=== PATIENT | female | born 1945 | race Two or more races ===

== ENCOUNTER 2024-12-27 16:39 | Emergency (ER) | payer OTHER, MEDICAID ==
[~2024-12-27] VITALS: Ht 175.3 cm; Wt 86.4 kg
[2024-12-27] MEDS ORDERED: ACYC-129 PO (20:26)
[2024-12-27] MEDS ORDERED: AMLO2.5T2 PO (20:26)
[2024-12-27] MEDS ORDERED: TIZA-189 PO (20:26)
[2024-12-27] MEDS ORDERED: GABA-530 PO (20:26)
[2024-12-27] MEDS: acetaminophen 325mg tablet PO ONE (20:29)
[2024-12-27] MEDS ORDERED: LIDO700A32 TD (21:30)
[2024-12-27] MEDS ORDERED: IBUP-1984 PO (21:30)
[2024-12-27] MEDS: LIDOcaine 5% patch TP STA (21:40)
[2024-12-27 21:44] VITALS: BP 164/84; PULSE 84; RESP 16; TEMP 97; O2SAT 97
== END 2024-12-27 21:48 | disposition home or self-care (01) ==
LOC: ER 16:41
DX: M25.552 Pain in left hip (principal); M25.551 Pain in right hip; Z79.1 Long term (current) use of non-steroidal anti-inflammatories (NSAID); Z79.899 Other long term (current) drug therapy
CPT/HCPCS: 73521; 99283

== ENCOUNTER 2025-02-16 10:25 | Emergency (ER) | payer OTHER, MEDICAID ==
[~2025-02-16] VITALS: Ht 149.9 cm; Wt 61.6 kg
[~2025-02-16 10:25] MED LIST: ACYC-129 PO; AMLO2.5T2 PO; GABA-530 PO; LIDO700A32 TD; TIZA-189 PO
[2025-02-16 11:45] VITALS: TEMP 97.3
[2025-02-16 14:22] VITALS: BP 168/65; PULSE 60; O2SAT 98
[2025-02-16 15:14] VITALS: RESP 16
[2025-02-16] MEDS: ketorolac trometh 15mg/ml vial 15 MG/ML ML IM ONE (15:14)
== END 2025-02-16 15:15 | disposition home or self-care (01) ==
LOC: ER 10:25
DX: K40.90 Unilateral inguinal hernia, without obstruction or gangrene, not specified as recurrent (principal); Z79.899 Other long term (current) drug therapy
CPT/HCPCS: 96372; 99283; J1885

== ENCOUNTER 2025-03-31 15:41 | Emergency (ER) | payer MEDICARE, MEDICAID ==
[~2025-03-31] VITALS: Ht 149.9 cm; Wt 76.4 kg
[2025-03-31 16:24] LABS: BASOPHILS % (AUTO) 0.6 % (0-1); EOSINOPHILS # (AUTO) 0.4 X10'3 (0-0.9); EOSINOPHILS % (AUTO) 6.9 % (0-6); HEMATOCRIT 35.1 % (35.0-45.0); HEMOGLOBIN 11.9 g/dl (12.0-16.0); LYMPHOCYTES # (AUTO) 1.9 X10'3 (1.1-4.8); LYMPHOCYTES % (AUTO) 31.7 % (21-51); MEAN CORPUSCULAR HEMOGLOBIN 27.7 PG (27.0-31.0); MEAN CORPUSCULAR HGB CONC 33.8 g/dL (33.0-36.5); MEAN CORPUSCULAR VOLUME 82.1 FL (78-98); MEAN PLATELET VOLUME 6.5 FL (7.4-10.4); MONOCYTES # (AUTO) 0.5 X10'3 (0-0.9); MONOCYTES % (AUTO) 8.9 % (2-12); NEUTROPHILS % (AUTO) 51.9 % (42-75); PLATELET COUNT 324 X10'3 (140-440); RED BLOOD COUNT 4.28 X10'6 (4.20-5.60); RED CELL DISTRIBUTION WIDTH 17.8 % (11.5-14.5); WHITE BLOOD COUNT 5.9 X10'3 (4.5-11.0)
[2025-03-31 16:37] LABS: ALANINE AMINOTRANSFERASE 17 U/L (12-78); ALBUMIN 3.5 G/DL (3.4-5.0); ALBUMIN/GLOBULIN RATIO 0.8 (1.1-1.5); ALKALINE PHOSPHATASE 118 IU/L (46-116); ANION GAP 7 (8-16); ASPARTATE AMINO TRANSFERASE 17 U/L (10-37); BILIRUBIN,TOTAL 0.4 MG/DL (0.1-1.0); BLOOD UREA NITROGEN 15 MG/DL (7-18); BUN/CREATININE RATIO 14.3 (10.0-20.0); CALCIUM 9.3 MG/DL (8.5-10.1); CHLORIDE 108 MMOL/L (99-107); CREATININE 1.05 MG/DL (0.40-0.90); GLUCOSE 100 MG/DL (70-104); LIPASE 61 U/L (16-77); POTASSIUM 4.1 MMOL/L (3.5-5.1); SODIUM 142 MMOL/L (135-145); eCRCL 30 ML/MIN; eGFR 51 ML/MIN
[2025-03-31] MEDS: HYDROmorphone inj. 0.5 MG/0.5 ML DISP.SYRIN IV ONE (20:58)
[2025-03-31] MEDS ORDERED: iohexol 300mg/ml 100ml inj. ONE (21:59)
[2025-03-31 22:54] LABS: BILIRUBIN,URINE NEGATIVE (Neg); CLARITY,URINE CLEAR (Clear); COLOR,URINE YELLOW (Yellow); GLUCOSE, URINE NEGATIVE (Neg); KETONES,URINE NEGATIVE (Neg); LEUKOCYTE ESTERASE ,URINE NEGATIVE (Neg); NITRITES, URINE NEGATIVE (Neg); OCCULT BLOOD,URINE SMALL (Neg); PROTEIN,URINE NEGATIVE (Neg); UA COLLECTION TYPE CLN CATCH MIDSTREAM; UROBILINOGEN,URINE 0.2 E.U/dL (0.2-1.0)
[2025-03-31 23:07] LABS: RBC,URINE NONE SEEN /HPF (0-2); WBC,URINE 0-4 /HPF (0-4)
[2025-03-31 23:08] LABS: BACTERIA,URINE NONE SEEN /HPF (Neg); SQUAMOUS EPITHELIAL CELL,UR FEW /LPF (FEW)
--- NOTE | 2025-04-01 00:28 | RADIOLOGY REPORT ---
Clinical History LLQ abdominal pain Comparison None Technique: Contiguous axial CT images of the abdomen and pelvis before and after intravenous contrast administration. Coronal and sagittal reformation was performed. All CT scans at this medical facility are performed using dose modulation techniques as appropriate t o a performed exam including the following: Automated exposure control was utilized; adjustment of th e mA and/or kV according to patient size; and use of iterative reconstruction technique. All CT studies are reported to the Dose Index Registry of the [employer]. Contrast: 150 OMNI 300 Radiation Dose: CTDI (mGy): 29.07; DLP (mGy-cm): 1706.85 GABE VELA, [id number] Findings: Several cysts are in both kidneys. The liver, spleen, both adrenal glands, both kidneys, and pancrea s are otherwise normal. No hydronephrosis or ureteral stone is present. The gallbladder is contracted and not well evaluated. Multiple diverticula are in the descending and sigmoid colon. The stomach, small bowel, and colon sh ow otherwise normal caliber and wall thickness. The appendix is normal. A 23 x 15 mm peripherally enhancing lesion is in the left inguinal subcutaneous tissue. No free air, free fluid, or lymphadenopathy is in the abdomen or pelvis. The abdominal aorta shows normal course and diameter. Both lung bases are clear. The urinary bladder is intact. The uterus shows normal size and shape. No acute fracture or bony destructive lesion is in the imaged portion of the skeleton. Impression: 1. Left inguinal peripherally enhancing 23 mm lesion may represent an abscess. Please correlate cli nically. 2. Colonic diverticulosis. This report was electronically signed by Alvaro Vital MD on 04/01/2025 12:24:24 AM.
--- NOTE | 2025-04-01 01:13 | Physician Documentation ---
History of Present Illness Chief Complaint: Abdominal Pain Stated Complaint: ABD PAIN Time Seen by MD: 20:10 Primary Medical Doctor: none Mode of Arrival: Ambulatory HPI 79 year old female reports several days of L inguinal pain, radiating to her back. Denies fever, N/V/D, urinary symptoms. She has a history of a hernia to her L groin in the past. She has been using the toilet normally with a bowel movement yesterday. Medication Reconciliation Allergies: Coded Allergies: No Known Allergies (Unverified , 12/27/24) Scheduled Acyclovir* (Zovirax*), 1 TAB PO QID, (Reported) Amlodipine* (Norvasc*), 10 MG PO DAILY, (Reported) Ciprofloxacin HCl (Ciprofloxacin HCl), 1 TAB PO BID Gabapentin (Gabapentin), 1 CAP PO BID, (Reported) Lidocaine (Lidoderm), 1 PATCH TD DAILY Metronidazole* (Flagyl*), 1 TAB PO Q12H Scheduled PRN Tizanidine Hcl (Zanaflex), 1 TAB PO BID PRN for pain, (Reported) Review of Systems All Other Systems at this time: Reviewed and Negative Physical Exam Vital Signs: RN Vital Signs have been reviewed: Yes, Temperature: 98.0, Source: Temporal, Heart Rate: 60, Respiratory Rate: 16, BP: 168/82, Pulse Oximetry: 98, Weight: 76.360 Oxygen Flow Rate: 0 Physical Exam HEENT: PERRL, moist oral mucosa, EOMI Pulmonary: No respiratory distress Cardiac: RRR, no murmur, rub or gallop GI: nondistended, soft, +TTP to L inguinal region without palpable hernia, nor overlying erythema, induration, fluctuance MSK: no deformity Skin: w/d/i, no rash Neuro: alert, nonfocal Psych: normal affect Progress Results/Orders Results/Orders Orders - NANCY ARSHAD MD Ct Abdomen Pelvis (03/31/25 20:24) Completed Orders - NANCY ARSHAD MD Ct Abdomen Pelvis (03/31/25 20:24) Hydromorphone 0.5 Mg/0.5 Ml/Pf (Dilaudid (03/31/25 20:30) Iohexol 300mg/Ml 100ml Inj. (Omnipaque-3 (03/31/25 21:59) Vital Signs 503/31/25 03/31/25 03/31/25 15:45 20:22 20:25 23:42 Temp 98.2 Pulse 69 60 74 Resp 17 16 16 16 B/P (MAP) 192/73 193/91 (125) 186/98 (127) Pulse Ox 94 98 95 O2 Flow Rate 0 0 04/01/25 01:08 Temp 98.0 Pulse 60 Resp 16 B/P (MAP) 168/82 (110) Pulse Ox 98 O2 Flow Rate 0 Laboratory Tests Test 03/31/25 22:47 Urine Specimen Description Cln catch midstream Urine Color Yellow Urine Clarity Clear Urine pH 6.0 Urine Specific Osprey 1.010 Urine Protein Negative Urine Glucose (UA) Negative Urine Ketones Negative Urine Occult Blood Small Urine Nitrite Negative Urine Bilirubin Negative Urine Urobilinogen 0.2 Urine Leukocyte Esterase Negative Urine RBC None seen Urine WBC 0-4 Urine Squamous Epithelial Cells Few Urine Bacteria None seen Urine Culture Indicated Not ind Volume Urine Centrifuged 10 ml Urine Comment Medical Decision Making Findings 79 year old female with L inguinal pain as above. Workup was largely benign other than CT scan which demonstrated a 2cm fluid-filled circular subQ/inguinal rim-enhancing structure with some surrounding fluid and fat stranding. This could represent an abscess or cyst, but does not appear contiguous with the bowel or consistent with a hernia. Discussed this with the patient and elected to provide antibiotics and advise that she follow up with her primary care physician for further workup. Return precautions were discussed. Differential Dx:Considerations: Include: Appendicitis, Bowel obstruction, Constipation, Gastritis/PUD, Gastroenteritis, Hernia, Ischemic bowel, Ovarian cyst/torsion, Pancreatitis, Urinary obstruction, Urinary tract infection, Urolithiasis Departure Disposition: 01 HOME / SELF CARE / HOMELESS Impression: Primary Impression: Cyst Condition: Stable Discharge Instructions: Abdominal Pain (Nonspecific) Referrals: NO PRIMARY CARE PROVIDER (PCP) Prescriptions Metronidazole* (Flagyl*) 500 Mg Tablet 1 TAB PO Q12H for 10 Days, #20 TAB Prov: NANCY ARSHAD MD 04/01/25 Ciprofloxacin HCl (Ciprofloxacin HCl) 500 Mg Tab 1 TAB PO BID, #20 TAB Prov: NANCY ARSHAD MD 04/01/25 Education Educated: Patient Educated regarding: diagnosis, treatment, prognosis, need for follow up Signature Scribe Signature: . Attestation: . NANCY ARSHAD MD April 01, 2025 01:13
[2025-04-01] MEDS ORDERED: METR-159 PO (01:31)
[2025-04-01] MEDS ORDERED: CIPR-202 PO (01:31)
[2025-04-01 01:53] VITALS: BP 183/86; PULSE 62; RESP 16; TEMP 98.5; O2SAT 96
== END 2025-04-01 01:57 | disposition home or self-care (01) ==
LOC: ER 15:43
DX: R10.30 Lower abdominal pain, unspecified (principal)
CPT/HCPCS: 36415; 74178; 80053; 81001; 83690; 85025; 99285; Q9967; 74177

== ENCOUNTER 2025-04-09 12:25 | Emergency (ER) | payer MEDICARE, MEDICAID ==
[~2025-04-09] VITALS: Ht 144.8 cm; Wt 63.6 kg
[~2025-04-09 12:25] MED LIST changes: +CIPR-202 PO; +METR-159 PO
[2025-04-09 12:38] VITALS: BP 158/75; PULSE 69; TEMP 98.1; O2SAT 96
--- NOTE | 2025-04-09 14:30 | RADIOLOGY REPORT ---
CLINICAL INDICATION: left hip pain TECHNIQUE: DI HIP left 2 VIEWS Comparison: None FINDINGS/IMPRESSION: There is no evidence of acute fracture or dislocation. Moderate degenerative changes of the left hip with flattening of the femoral head. Intact appearing right arthroplasty on frontal view. Soft tissues are unremarkable.
[2025-04-09] MEDS ORDERED: HYDR-3965 PO (14:51)
--- NOTE | 2025-04-09 14:53 | Physician Documentation ---
History of Present Illness ~ Chief Complaint: Buttock Pain Stated Complaint: "HERNIA" Time Seen by MD: 13:20 Primary Medical Doctor: none HPI 79-year-old female reports ER with chief complaint of left hip pain radiating to her buttock. Patient states he has been having symptoms for past three weeks. Denies bowel urinary incontinence. Denies saddle anesthesias. Denies numbness tingling loss of sensation. Currently not taking medications therapy has been in symptoms. No other complaints at this time Medication Reconciliation Allergies: Coded Allergies: No Known Allergies (Unverified , 04/09/25) Scheduled Acyclovir* (Zovirax*), 1 TAB PO QID, (Reported) Amlodipine* (Norvasc*), 10 MG PO DAILY, (Reported) Ciprofloxacin HCl (Ciprofloxacin HCl), 1 TAB PO BID Gabapentin (Gabapentin), 1 CAP PO BID, (Reported) Lidocaine (Lidoderm), 1 PATCH TD DAILY Metronidazole* (Flagyl*), 1 TAB PO Q12H Prednisone* (Prednisone*), 1 TAB PO Q12H Scheduled PRN Hydrocodone Bit/Acetaminophen 5/325 MG (Lutz 5/325 MG), 1 TAB PO Q12H PRN PRN for pain Tizanidine Hcl (Zanaflex), 1 TAB PO BID PRN for pain, (Reported) Physical Exam Physical Exam Vital Signs: Temperature: 98.1, Source: Oral, Heart Rate: 69, Respiratory Rate: 15, BP: 158/75, Pulse Oximetry: 96, Weight: 63.650 Physical Exam General: Well developed, well nourished, no distress. HEENT: Atraumatic, normal conjunctiva, moist mucous membranes. Neck: Full range of motion, supple. Respiratory: Lungs clear, no respiratory distress. Chest: No accessory muscle use, nontender. Cardiovascular: Regular rate and rhythm. Gastrointestinal: Soft, nontender, nondistended. Bowel sounds present. Extremities: Left hip exam: Negative for permanents gross deformities. Negative for overlying erythema, ecchymosis signs of infection. Positive tenderness to the left groin with pain with forward flexion of the hip as well as internal and external rotation of the hip. Flexion-extension of the hip from 0-130 and internal and external rotation from 0-70. EHL intact. Neurovascular intact distally Back: No midline tenderness, no CVA tenderness. Neurologic: Oriented x4. Distal gross motor and sensory intact all four extremities. Moves all 4 extremities spontaneously. Psychiatric: Normal mood and affect. Skin: Normal color, warm and dry. No edema, no ecchymosis Progress Results/Orders Results/Orders Orders - TONE RIVERA Hip Unilateral 2 Views (04/09/25 14:19) Completed Orders - TONE RIVERA Hip Unilateral 2 Views (04/09/25 14:19) Hydrocodone/Apap 5/325mg Tab (Lutz 5/32 (04/09/25 14:55) Medications Received in ER Medications (Trade) Dose Ordered Sig/Myra Route PRN Reason Start Time Stop Time Status Last Admin Dose Admin (Lutz 5/325mg tablet) 1 tab ONCE ONCE PO 04/09/25 14:55 04/09/25 14:56 DC 04/09/25 15:04 1 TAB Vital Signs 04/09/25 04/09/25 12:38 15:04 Temp 98.1 Pulse 69 Resp 15 18 B/P (MAP) 158/75 Pulse Ox 96 Medical Decision Making Additional info obtained from: old records Findings After detailed discussion and joint medical decision-making, diagnostic and imaging results were discussed with the patient. At this time patient symptoms consistent with a bursitis versus is arthritis. Patient does have slight arthritic changes to the hip. Patient was given medication for pain he will be discharged with instructions to follow up with primary care. ER precautions were given. Patient is stable upon discharge. All patient questions answered to satisfaction Differential Dx:Considerations: Include: Other (Arthritis, fracture, contusion, bursitis) Departure Disposition: HOME / SELF CARE / HOMELESS Impression: Primary Impression: Pain, joint, hip, left Additional Impressions: Back pain Osteoarthritis of hip Condition: Stable Discharge Instructions: Sciatica Referrals: NO PRIMARY CARE PROVIDER (PCP) Prescriptions Prednisone* (Prednisone*) 20 Mg Tablet 1 TAB PO Q12H for 5 Days, #10 TAB Prov: TONE RIVERA 04/09/25 Hydrocodone Bit/Acetaminophen 5/325 MG (Lutz 5/325 MG) 5 Mg/325 Mg Tablet 1 TAB PO Q12H PRN PRN for pain for 5 Days, #10 TAB Prov: TONE RIVERA 04/09/25 Education Educated: Patient Educated regarding: diagnosis, treatment Signature Scribe Signature: none used Attestation: Scribed for Tone Rivera by Tone HOGUE . 04/09/25 14:53 TONE RIVERA April 09, 2025 14:53
[2025-04-09 15:04] VITALS: RESP 18
[2025-04-09] MEDS: HYDROcodone/acetaminophen 5mg/325mg tablet PO ONE (15:04)
[2025-04-09] MEDS ORDERED: PRED20TA PO (15:13)
== END 2025-04-09 15:15 | disposition home or self-care (01) ==
LOC: ER 12:26
DX: M16.12 Unilateral primary osteoarthritis, left hip (principal); M54.9 Dorsalgia, unspecified
CPT/HCPCS: 73502; 99283

== ENCOUNTER 2025-09-15 14:28 | Outpatient (CLI) | payer MEDICARE, MEDICAID ==
[~2025-09-15 14:28] MED LIST changes: -CIPR-202 PO; +LIDO-52 TD; -LIDO700A32 TD; -METR-159 PO
--- NOTE | 2025-09-15 17:24 | RADIOLOGY REPORT ---
PROCEDURE: MR MRI LUMBAR SPINE Indication: MYALGIA, OTHER SITE, LOW BACK PAIN, PAIN IN L LEG COMPARISON: None TECHNIQUE: Multiplanar multisequence images of the the lumbar spine are obtained. FINDINGS: For the purpose of this examination, there are 5 lumbar vertebral body types counting from the lumbosacral junction. Chronic L5 compression deformity with 50% loss height. Chronic L2 compression deformity with 50% loss height. Chronic L3, L4 compression deformities with 20% loss height. Chronic T11 compression deformity with 20% loss height. No abnormal marrow edema. Moderate multilevel disc space narrowing and desiccation. There is mild lumbar dextrocurvature. Conus terminates at the level of the L1 level. Bilateral renal cysts. Colonic diverticular disease. T12-L1: 3 mm disc protrusion. Rbii-ku-fcjkzgbi facet and flavum hypertrophy. No spinal canal stenosis. Moderate bilateral neural foraminal stenosis. L1-2: 3 mm disc protrusion. Mild facet and flavum hypertrophy. No spinal canal stenosis. Moderate bilateral neural foraminal stenosis. L2-3: 2 mm disc protrusion. Ukui-im-oqsvecvr facet and flavum hypertrophy. No spinal canal stenosis. Zler-nl-pbcenplt bilateral neural foraminal stenosis. L3-4: Small disc osteophyte complex. Qftk-yp-fxcvijmt facet and flavum hypertrophy. No spinal canal stenosis. Moderate bilateral neural foraminal stenosis. L4-5: Small disc protrusion. Legt-rf-onikonlk facet and flavum hypertrophy. No spinal canal stenosis. Bstk-lc-pvoqpsko bilateral neural foraminal stenosis. L5-S1: Small disc protrusion. Jhro-ci-ogbyeodv facet and flavum hypertrophy. No spinal canal stenosis. Moderate bilateral neural foraminal stenosis. IMPRESSION: Moderate lumbar degenerative disc disease. Multiple lumbar chronic appearing compression deformities as described above. No high-grade spinal canal stenosis. Multilevel sbkg-mx-vmlnvoxa neural foraminal stenosis as described.
--- NOTE | 2025-09-15 21:36 | RADIOLOGY REPORT ---
EXAM: MR MRI LOWER EXTREMITY LEFT INDICATION: LEFT LEG PAIN TECHNIQUE: Multiplanar, multisequence imaging of the left lower extremity /femur without contrast COMPARISON: MR MRI PELVIS on DOS: 09/15/25 FINDINGS: BONES: Significant appearance of flattening of the superior aspect of the left femoral head with prominent underlying osteitis with serpiginous low T2 signal extending along the subchondral bone plate (series 7, image 20). Imaging findings may be compatible with sequelae of avascular necrosis, stage IV with end-stage osteoarthrosis. Right hip arthroplasty. MUSCLES: Normal signal intensity and morphology. TENDONS: Intact. LIGAMENTS: Intact. JOINT SPACES: Small left hip joint effusion. NEUROVASCULAR: Normal. OTHER: None. IMPRESSION: 1. Significant appearance of flattening of the superior aspect of the left femoral head with prominent underlying osteitis with serpiginous low T2 signal extending along the subchondral bone plate. 2. Imaging findings may be compatible with sequelae of avascular necrosis, stage IV with 3. Small left hip joint effusion.
--- NOTE | 2025-09-15 21:39 | RADIOLOGY REPORT ---
EXAM: MR MRI PELVIS INDICATION: MYALGIA, OTHER SITE, LOW BACK PAIN, PAIN IN L LEG TECHNIQUE: Multiplanar, multisequence imaging of the pelvis without contrast COMPARISON: CT CT ABDOMEN PELVIS W/ IV CONTRAST on DOS: 03/31/25 FINDINGS: [BONES]: Evidence of avascular necrosis of the left femoral head with estimated up to 50 percent involvement of the articular surface with subsequent flattening of the superior femoral head. Subsequent end-stage osteoarthrosis of the left hip. Chronic superior endplate height loss with 50 percent central height loss of the L5 without evidence of retropulsion. [MUSCLES]: Trace asymmetric muscle edema of the origin of the gluteus minimus. [TENDONS]: Hamstring tendon origins at the ischial tuberosities are normal. [JOINT SPACES]: Small left hip joint effusion [NEUROVASCULAR]: Visualized sciatic nerves are normal without evidence of a subjacent mass lesion or abnormal intrinsic T2 hyperintensity. The visualized sacral nerve roots are normal with normal appearing surround fat planes without an adjacent mass lesion. [OTHER]: There is no trochanteric or iliopsoas bursal collection. Intraperitoneal cavity is unremarkable. Minimal descending and sigmoid colonic diverticulosis. Small fat containing left inguinal hernia. Degenerative change of bilateral sacroiliac joints. IMPRESSION: 1. Avascular necrosis of the left femoral head with subsequent 2. No abnormal intrinsic T2 hyperintensity of the visualized sciatic nerves.
== END 2025-09-15 23:59 | disposition home or self-care (01) ==
LOC: MRI02 14:28
PROVIDERS: ATTEND Physician Assistant
DX: M47.817 Spondylosis without myelopathy or radiculopathy, lumbosacral region (principal); M51.27 Other intervertebral disc displacement, lumbosacral region; M87.852 Other osteonecrosis, left femur; M25.452 Effusion, left hip; M46.1 Sacroiliitis, not elsewhere classified; M48.07 Spinal stenosis, lumbosacral region; M47.814 Spondylosis without myelopathy or radiculopathy, thoracic region; K40.90 Unilateral inguinal hernia, without obstruction or gangrene, not specified as recurrent; M51.24 Other intervertebral disc displacement, thoracic region; M48.04 Spinal stenosis, thoracic region; M43.8X5 Other specified deforming dorsopathies, thoracolumbar region; M43.8X6 Other specified deforming dorsopathies, lumbar region; M79.18 Myalgia, other site; M79.605 Pain in left leg; Z96.641 Presence of right artificial hip joint
CPT/HCPCS: 72148; 72195; 73718

== ENCOUNTER 2025-10-22 12:04 | Emergency (ER) | payer MEDICARE, MEDICAID ==
[~2025-10-22] VITALS: Ht 157.5 cm; Wt 71.8 kg
[2025-10-22 12:08] VITALS: TEMP 98
--- NOTE | 2025-10-22 14:21 | Physician Documentation ---
History of Present Illness ~ Chief Complaint: Hip pain Stated Complaint: R HIP PAIN Time Seen by MD: 14:05 Primary Medical Doctor: none HPI 80 yr old female who presents to the emergency department reporting that she has had steadily worsening right hip pain over the last several weeks. No trauma. Hx hip replacement approx 4 yrs ago. She reports that for the last four days, s he has been unable to ambulate more than a few steps due to the pain. She has seen her primary care provider for this. She has received steroid injections in the hip, and has a referral pending to a specialist. She provides further history through the parts interpreter that she was seen at [facility] yesterday, and did have an MRI. This result will be obtained. The patient denies any chills or fever, nausea or vomiting, chest pain or shortness of breath. She has been taking ibuprofen for the pain. It has proven ineffective. Medication Reconciliation Allergies: Coded Allergies: No Known Allergies (Unverified , 04/09/25) Scheduled Acyclovir* (Zovirax*), 1 TAB PO QID, (Reported) Amlodipine* (Norvasc*), 10 MG PO DAILY, (Reported) Gabapentin (Gabapentin), 1 CAP PO BID Gabapentin (Neurontin), 1 CAP PO qhs Lidocaine (Lidoderm), 1 PATCH TD DAILY Scheduled PRN Hydrocodone Bit/Acetaminophen (Hydrocodon-Acetaminophen 5-325), 1 TAB PO TID PRN PRN for pain Tizanidine Hcl (Zanaflex), 1 TAB PO BID PRN for pain, (Reported) Review of Systems ROS As stated above in the HPI, otherwise all systems are reviewed and negative. Physical Exam Vital Signs: Temperature: 98.0, Source: Temporal, Heart Rate: 70, Respiratory Rate: 16, BP: 168/74, Pulse Oximetry: 99, Weight: 71.820 Oxygen Flow Rate: 0 Physical Exam General: Alert, no apparent distress. HEENT: PERRL, EOMI, no injection, moist mucous membranes. Neck: Full range of motion. Respiratory: Lungs clear, no respiratory distress. Chest: No accessory muscle use. Cardiovascular: Regular rate and rhythm, no murmurs. Gastrointestinal: Soft, nontender, nondistended. Bowels sounds present. Extremities: Presents in w/c. Able to ambulate a couple steps but is limited due to pain. TTP right hip without hot red joint or skin abnormalities noted on exam. Neurologic: Oriented x4. Psychiatric: Normal mood and affect. Skin: Normal color, warm and dry. No edema, no ecchymosis. Progress Results/Orders Results/Orders Orders - MARLYN WEST NP Hip Unilateral 2-3 Views (10/22/25 14:15) Gait Test (10/22/25 ) Completed Orders - MARLYN WEST NP Hip Unilateral 2-3 Views (10/22/25 14:15) Hydrocodone/Apap 5/325mg Tab ([place] 5/32 (10/22/25 14:55) Medications Received in ER Medications (Trade) Dose Ordered Sig/Myra Route PRN Reason Start Time Stop Time Status Last Admin Dose Admin ([place] 5/325mg tablet) 1 tab ONCE ONCE PO 10/22/25 14:55 10/22/25 14:56 DC 10/22/25 15:22 1 TAB Vital Signs 10/22/25 10/22/25 12:08 15:22 Temp 98.0 Pulse 70 Resp 16 16 B/P (MAP) 168/74 Pulse Ox 99 O2 Flow Rate 0 EKG/XRAY/CT/US/VASC/MRI Bone/Soft Tissue X-Ray (Spine) : Additional Comment [place] [id number] DIAGNOSTIC RADIOLOGY Patient: GABE VELA Medical Record: [id number] [facility] : 1945, Age: 80 Sex: Female Location: ER Patient Status: REG ER Service Date/Time: 10/22/251414 Ordering Physician: MARLYN WEST NP Exam: HIP UNILATERAL 2-3 VIEWS PROCEDURE: Right hip radiographs. INDICATION: pain TECHNIQUE: Frontal and lateral views of the right hip COMPARISON: DI HIP UNILATERAL 2 VIEWS on DOS: 04/09/25, DI HIP,BI,CMPLT(AP PELVIS) on DOS: 12/27/24 FINDINGS: There is a right hip replacement which appears to be intact. 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 There is no evidence of fracture or dislocation. The soft tissues are unremarkable. IMPRESSION: 1. No acute osseous abnormality. 2. Intact right hip replacement. Electronically Signed by:ELSY KAY MD Date & Time: 10/22/25 1443 Dictated by: ELSY KAY MD Dictation date and time: 10/22/25 1410 Primary Care Provider: NO PRIMARY CARE PROVIDER cc: MARLYN WEST INDUSTRIAL CLEANING TECHNICIAN ~ Medical Decision Making Additional information obtaine: family Findings Family member accompanies her. Electronic Industrial Controls Mechanic used to translate Azeri. Differential Dx:Considerations: Include: Avascular necrosis, Arthritis, Arthritis-Rheumatoid, Arthritis-Septic, Bursitis, Contusion, Dislocation, DJD, Fracture-femur, Fracture-hip, Fracture-open, Fracture-pelvis, Gout, Hernia, Asmf-Kjrpj-lknzlrr dz., Neurovascular injury, Slip capital femoral epip, Sprain, Transient synovitis Additional Comment MRI results of lumbar spine and hip reviewed from just within last few months. Patient given one hydrocodone in ER and will be sent with same for discharge. Should f/u with PCP and specialists as planned. Departure Time of Disposition: 15:46 Disposition: 01 HOME / SELF CARE / HOMELESS Impression: Primary Impression: Hip pain Qualified Codes: M25.551 - Pain in right hip Additional Impression: Arthritis Discharge Instructions: Hip Pain, Arthritis, Nonspecific Additional Instructions: ### Hip Pain Management Instructions Instrucciones para el Manejo del Dolor de Cadera / Hip Pain Management Instruc tions Lan Diagnstico / Your Diagnosis Usted tiene dolor santos de cadera relacionado con artritis. Aunque tuvo un reemplazo de cadera hace varios aos, ahora est experimentando dolor nuevo y santos que dificulta caminar. Se le latham realizado estudios de imagen (resonancia magntica) de la espalda baja y la cadera para evaluar la causa de lan dolor. You have severe hip pain related to arthritis. Although you had a hip replacement several years ago, you are now experiencing new, severe pain that makes it difficult to walk. You have had imaging studies (MRI) of your lower back and hip to evaluate the cause of your pain. Analisa Medicamentos / Your Medications Hidrocodona (Hydrocodone) - Medicamento Opioide para el Dolor a Corto Plazo / Short-Term Opioid Pain Medication Se le murillo recetado un curso corto de hidrocodona para ayudar a controlar lan dolor santos. Fatemeh es un medicamento opioide (narctico) que solo debe usarse por un perodo breve. You have been prescribed a short course of hydrocodone to help control your severe pain. This is an opioid (narcotic) medication that should only be used fo r a brief period. Riesgos Importantes de los Opioides en Adultos Mayores / Important Risks of Opioids in Older Adults: Los adultos mayores tienen mayor riesgo de efectos secundarios graves con los medicamentos opioides:[1][2][3] Older adults are at higher risk for serious side effects from opioid medications:[1][2][3] - Estreimiento (Constipation): Los opioides kendra siempre causan estreimiento. Debe comenzar un rgimen intestinal preventivo (genoveva un ablandador de heces o laxante suave) [place] pronto genoveva comience a pooja hidrocodona. Lissette mitchel agua y aumente la fibra en lan dieta si es posible.[2][3] - Depresin Respiratoria (Respiratory Depression): Los opioides pueden hacer que lan respiracin se vuelva peligrosamente lenta, especialmente cuando se combinan con otros medicamentos sedantes. [place] puede ser fatal. Los adultos mayores son ms susceptibles a fatemeh efecto.[2][3][4] - Somnolencia Excesiva y Confusin (Excessive Drowsiness and Confusion): Los opioides pueden causar somnolencia severa, confusin y delirio, especialmente en adultos mayores. [place] aumenta lan riesgo de cadas.[2][3] - Mareos y Cadas (Dizziness and Falls): Los opioides pueden causar mareos y problemas de equilibrio, lo que aumenta significativamente lan riesgo de caerse.[2] - Dependencia y Adiccin (Dependence and Addiction): Incluso el uso a corto plazo de opioides puede llevar al uso prolongado no deseado y al desarrollo de un trastorno por uso de opioides.[1] Instrucciones Importantes de Seguridad / Important Safety Instructions: - [place] la hidrocodona exactamente genoveva se le recet. No tome ms de la cantidad prescrita.[4] - NO conduzca ni opere maquinaria mientras tome hidrocodona, ya que puede afectar lan capacidad para hacerlo de manera chairez.[4] - NO lissette alcohol mientras tome hidrocodona, ya que esto aumenta enormemente el riesgo de depresin respiratoria y muerte.[4] - NO tome benzodiazepinas (genoveva diazepam, lorazepam, alprazolam) u otros sedantes con hidrocodona sin hablar eliel con lan mdico, ya que esta combinacin puede ser fatal.[4] - Guarde la hidrocodona en un lugar seguro, preferiblemente bajo llave, para evitar que otros (incluidos los nios) la tomen accidentalmente o intencionalmente.[4] - Deseche cualquier hidrocodona no utilizada de manera chairez cuando termine lan tratamiento.[4] - Si experimenta dificultad para respirar, confusin severa, somnolencia extrema o no puede despertarse, busque atencin mdica de emergencia de inmediato.[1] Gabapentina (Gabapentin) - Para Dolor Neuroptico / For Neuropathic Pain La gabapentina es un medicamento que puede ayudar con ciertos tipos de dolor, especialmente el dolor nervioso. Sin embargo, tambin puede causar sedacin (somnolencia) y mareos, especialmente en adultos mayores.[2][5] Gabapentin is a medication that can help with certain types of pain, especially nerve pain. However, it can also cause sedation (drowsiness) and dizziness, especially in older adults.[2][5] Lan Horario de Gabapentina / Your Gabapentin Schedule: - Gabapentina 100 mg por la maana (Gabapentin 100 mg in the morning) - Gabapentina 100 mg por la tarde (Gabapentin 100 mg in the afternoon) - Gabapentina 300 mg al acostarse (Gabapentin 300 mg at bedtime) IMPORTANTE / IMPORTANT: NO comience a pooja la dosis de gabapentina de 300 mg al acostarse hasta que haya terminado completamente lan hidrocodona. La combinacin de gabapentina y hidrocodona puede causar sedacin peligrosa y depresin respiratoria, que a veces resulta en la muerte.[6][7][8] DO NOT start taking the 300 mg bedtime dose of gabapentin until you have completely finished your hydrocodone. The combination of gabapentin and hydrocodone can cause dangerous sedation and respiratory depression, sometimes resulting in .[6][7][8] Puede comenzar las dosis de gabapentina de la maana y la tarde mientras enrico hidrocodona, saeid espere para agregar la dosis de la noche hasta que la hidrocodona se haya terminado. You may start the morning and afternoon gabapentin doses while taking hydrocodon e, but wait to add the nighttime dose until the hydrocodone is finished. Efectos Secundarios de la Gabapentina / Gabapentin Side Effects: - Somnolencia y mareos (Drowsiness and dizziness) - Mayor riesgo de cadas (Increased fall risk) - Confusin (Confusion) Si experimenta mareos severos o dificultad para caminar con la gabapentina, contacte a lan mdico de atencin primaria.[2][5] If you experience severe dizziness or difficulty walking with gabapentin, contact your primary care doctor.[2][5] Seguimiento Mdico Necesario / Required Medical Follow-Up Erika con lan Mdico de Atencin Primaria / Appointment with Your Primary Care Doctor: Debe programar aliya erika con lan mdico de atencin primaria dentro de 1-2 semanas para: You should schedule an appointment with your primary care doctor within 1-2 weeks to: - Revisar lan plan de tratamiento del dolor (Review your pain treatment plan) - Evaluar qu [place] becky estn funcionando analisa medic ### References 1. CDC Clinical Practice Guideline for Prescribing Opioids for Pain - [facility], 2021. Patricia Perrin, Shruthi KR, Dillan CM, Gregory GT, Lula R. MMWR. Recommendations and Reports : Morbidity and Mortality Weekly Report. Recommendations and Reports. 2021;71(3):1-95. doi:10.96506/mmwr.[email or web address]. 2. Best Practices Guidelines For Acute Pain Management In Trauma Patients. Lucas Nichols PharmD, Ish Stanford MD FACS FAAOS, et al. [employer] (2020). 3. Best Practices Guidelines Geriatric Trauma Management. Lorena Harris MD FACS, Marissa Astudillo MD, Charlene Menon MD FACS [facility], et al. [employer] (2022). 4. CDC Guideline for Pres[facility], 2016. Patricia Perrin, Chalo DARBY, Lula R. MOISES. 2016;315(15):1624-45. doi:10.1001/moises.2016.4224. 5. Pharmacotherapy for Spine-Related Pain in Older Adults. Ari COTA, Chichi MCCLURE. Drugs & Aging. 2021;39(7):523-550. doi:10.1007/[id number]-n. 6. GABAPENTIN. Food and Drug Administration. Updated date: 2025-02-25. 7. GABAPENTIN. Food and Drug Administration. Updated date: 2024-07-19. 8. Gabapentin. Food and Drug Administration. Updated date: 2025-03-28. Referrals: NO PRIMARY CARE PROVIDER (PCP) Prescriptions Gabapentin (Neurontin) 300 Mg Capsule 1 CAP PO qhs for 30 Days, #30 CAP 0 Refills Prov: MARLYN WEST NP 10/22/25 Hydrocodone Bit/Acetaminophen (Hydrocodon-Acetaminophen 5-325) 5 Mg-325 Mg Tablet 1 TAB PO TID PRN PRN for pain for 5 Days, #15 TAB Prov: MARLYN WEST NP 10/22/25 Lidocaine (Lidoderm) 5 % Adh..patch 1 PATCH TD DAILY, #10 PATCH Apply 1 patch daily for 12 hours then off for 12 hours May sub 15 grams 4 pct lidocaine cream if patches are cost peohibitive Prov: MARLYN WEST NP 10/22/25 Gabapentin (Gabapentin) 100 Mg Capsule 1 CAP PO BID for 30 Days, #60 CAP 0 Refills morning and afternoon Prov: MARLYN WEST NP 10/22/25 Education Educated: Patient, Family Educated regarding: diagnosis, treatment, prognosis, need for follow up Signature Scribe Signature: x Attestation: The note accurately reflects work and decisions made by me.Marlyn Colon NP 10/22/25 15:11 MARLYN WEST NP Oct 22, 2025 14:21
--- NOTE | 2025-10-22 14:45 | RADIOLOGY REPORT ---
PROCEDURE: Right hip radiographs. INDICATION: pain TECHNIQUE: Frontal and lateral views of the right hip COMPARISON: DI HIP UNILATERAL 2 VIEWS on DOS: 04/09/25, DI HIP,BI,CMPLT(AP PELVIS) on DOS: 12/27/24 FINDINGS: There is a right hip replacement which appears to be intact. 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 There is no evidence of fracture or dislocation. The soft tissues are unremarkable. IMPRESSION: 1. No acute osseous abnormality. 2. Intact right hip replacement.
[2025-10-22] MEDS: HYDROcodone/acetaminophen 5mg/325mg tablet PO ONE (15:22)
[2025-10-22] MEDS ORDERED: HYDR-3964 PO (15:41)
[2025-10-22] MEDS ORDERED: GABA-530 PO (15:41)
[2025-10-22] MEDS ORDERED: LIDO-52 TD (15:41)
[2025-10-22] MEDS ORDERED: GABA300C PO (15:41)
[2025-10-22 16:29] VITALS: BP 215/91; PULSE 54; RESP 18; O2SAT 98
== END 2025-10-22 16:30 | disposition home or self-care (01) ==
LOC: ER 12:05
DX: M25.551 Pain in right hip (principal); M19.90 Unspecified osteoarthritis, unspecified site; Z96.641 Presence of right artificial hip joint; Z79.899 Other long term (current) drug therapy
CPT/HCPCS: 73502; 99283